=== PATIENT | male | born 1970 | race Caucasian/White ===

== ENCOUNTER → 2020-03-29 15:46 | Outpatient (CLI) | payer BC, SELFPAY ==
--- NOTE | 2020-03-29 15:55 | MRI_ITS ---
STUDY: MRI LEFT ELBOW REASON FOR EXAM: Male, 49 years old. Left elbow lateral epicondylitis, no injury TECHNIQUE: Standardized fat and water weighted pulse sequences were obtained in all 3 orthogonal planes. COMPARISON: None. FINDINGS: Normal radio-capitellum articulation. Normal radial collateral ligamentous complex. There is a mild thickening and irregularity as well as irregular signal of the common extensor tendon origin with a partial deep surface tear. A small elbow joint effusion is present. Marrow edema or occult fracture is seen. No osteochondral defect. Normal ulnotrochlear articulation. Normal ulnar collateral ligamentous complex. Normal common flexor tendon. The cubital tunnel is normal, with a normal ulnar nerve. Normal biceps tendon and distal insertion. Normal lacertus fibrosis. Normal brachialis musculotendinous insertion. Normal triceps tendon and teno-osseous insertion. Normal olecranon process. The visualized distal humerus, proximal radius, and ulna are normal. The visualized muscles of the distal arm and proximal forearm are normal. The soft tissue structures are unremarkable. MRI/Upper Ext Joint Only(Routine) IMPRESSION: 1. There is a mild thickening and irregularity as well as irregular signal of the common extensor tendon origin with a partial deep surface tear. 2. A small elbow joint effusion is present. 3. Marrow edema or occult fracture is seen. No osteochondral defect. Electronically Signed: Pedro Garcia MD at 21:59 EDT , Service support ,
== END ==
LOC: MRI 15:53
PROVIDERS: PCP Family Medicine; Referring Provider Physician Assistant; Visit Provider Physician Assistant
DX: M77.12 Lateral epicondylitis, left elbow (principal)
CPT/HCPCS: 73221

== ENCOUNTER → 2021-04-29 08:25 | Outpatient (CLI) | payer BC, SELFPAY ==
--- NOTE | 2021-04-29 08:49 | MRI_ITS ---
STUDY: MRI CERVICAL SPINE WITHOUT CONTRAST REASON FOR EXAM: Male, 50 years old. NECK AND RT ARM PAIN TECHNIQUE: Standardized fat and water weighted pulse sequences were obtained in the sagittal and axial planes. COMPARISON: None FINDINGS: Normal foramen magnum and brainstem-cervical cord junction. Normal craniovertebral junction. Normal anterior atlantoaxial articulation. Normal odontoid process. Normal cervical lordosis. Normal vertebral bodies and posterior osseous elements. C2-3: Normal endplates. Normal disc height, signal and morphology. Normal central canal and intervertebral neural foramina. C3-4: Edematous endplate changes. Disc space narrowing. Mild, noncompressive spondylotic bar. Normal central canal. Moderate foraminal stenosis due to uncinate hypertrophy. C4-5: Normal endplates. Normal disc height, signal and morphology. Normal central canal and intervertebral neural foramina. C5-6: Edematous endplate changes. Marked disc space narrowing. Normal central canal. Severe foraminal stenosis due to uncinate hypertrophy. C6-7: Normal endplates. Marked disc space narrowing. Mild, noncompressive spondylotic bar. No canal stenosis. Foraminal stenosis is mild on the right and severe on the left due to uncinate hypertrophy. C7-T1: Normal endplates. Normal disc height, signal and morphology. Normal central canal and intervertebral neural foramina. Normal cervical cord. Normal visualized soft tissue structures. Mucosal thickening in the sphenoid sinuses. Fluid level in the left maxillary sinus. MRI/Spine Cervical (Routine) IMPRESSION: 1. Moderate to severe foraminal stenosis at C3-4, C5-6 and C6-7. 2. Acute maxillary sinusitis. 3. Chronic sphenoid sinusitis. Electronically Signed: Velma Morelos MD at 18:26 EDT Tel , Service support ,
== END ==
PROVIDERS: PCP Nurse Practitioner Family; Referring Provider Anesthesiology Pain Medicine; Visit Provider Anesthesiology Pain Medicine
DX: M50.30 Other cervical disc degeneration, unspecified cervical region (principal); M67.812 Other specified disorders of synovium, left shoulder
CPT/HCPCS: 72141

== ENCOUNTER → 2021-05-31 12:46 | Outpatient (CLI) | payer BC, SELFPAY ==
[2021-05-31 13:35] LABS: Amphetamine Urine VISTA NEGATIVE (<1000 ng/mL); Barbiturate Urine VISTA NEGATIVE (< 200 ng/mL); Benzodiazepine Urine VISTA NEGATIVE (< 200 ng/mL); Cocaine Urine VISTA NEGATIVE (< 300 ng/mL); Ecstacy Urine VISTA NEGATIVE (< 500 ng/mL); Methadone Urine VISTA NEGATIVE (< 300 ng/mL); PCP Urine VISTA NEGATIVE (< 25 ng/mL); THC Urine VISTA POSITIVE (< 50 ng/mL); Vista UDS pH Range 5
== END ==
LOC: LABSPEC 12:49 → LAB 06-01 06:29
PROVIDERS: PCP Nurse Practitioner Family; Visit Provider Anesthesiology Pain Medicine
DX: F11.20 Opioid dependence, uncomplicated (principal)
CPT/HCPCS: 80307

== ENCOUNTER 2022-01-11 05:45 | Inpatient (IN) | payer BC, SELFPAY ==
[2022-01-11] VITALS (11 sets, daily range): BP systolic 113–132; BP diastolic 70–92; PULSE 83–104; RESP 16–20; TEMP 36.6–37.2; O2SAT 93–97; BMI 23.1
[2022-01-11] MEDS: Lactated Ringers 1,000 ML 15 ML IV ×2 (06:33→11:50)
--- NOTE | 2022-01-11 07:27 | PCM.OPRPT ---
Problems Associated Problem List Diagnoses (1) Lumbar stenosis: Report of Operation Date of Procedure: 01/11/22 Pre-Operative Diagnosis: 1. Lumbar stenosis, L4-5 with spondylosis 2. Lumbar degenerative disc disease L4-5 Post-Operative Diagnosis: 1. Lumbar stenosis, L4-5 with spondylosis 2. Lumbar degenerative disc disease L4-5 Surgery/Procedure Performed:: 1. L4-5 posterior lumbar interbody fusion 2. Insertion of intervertebral biomechanical device x1 3. Structural allograft for spinal fusion 4. L4 bilateral laminectomies, foraminotomies, facetectomies, decompression of bilateral nerve roots 5. L4-5 posterior lateral fusion 6. Pedicle screw fixation 7. Local autograft for spinal fusion 8. Neuro monitoring bilateral upper and bilateral lower extremities Description of Surgical Findings:: Statement of medical necessity: The patient is a 51-year-old male with intractable back and leg pain. Image studies confirm the above diagnosis. He has failed conservative treatment to include medication, physical therapy and injections. The patient opted for operative intervention understanding the risks to include but not limited to infection, bleeding, damage to nerves arteries and veins, possibility of spinal fluid leak, nonunion, hardware failure, continued pain, need for further surgery, deep vein thrombosis, pulmonary embolism, heart attack, risk of stroke or . Description of procedure: The patient was identified in the preoperative holding area. There he received preoperative IV antibiotics, Ancef, and was then transferred to the operative suite. Once in the operative suite after general endotracheal anesthesia was established, the patient was transferred to the [place] operating table in the prone position. All bony prominences were padded accordingly. The lumbar spine was prepped and draped in a standard surgical fashion. Bear hugger's were not turned on until the drapes were placed and sealed with Ioban. A midline incision was made and taken down to the level of the lumbodorsal fascia. The fascia was divided and subperiosteal dissection was taken down to the level of the bilateral transverse processes of L4 and L5. Deep retractors were placed. A bone scalpel was used to perform cuts in the lamina of L4 bilaterally. A series of rongeurs and Kerrisons was used removing the spinous process and lamina at L4. Then facetectomies of greater than 50% were performed as well as foraminotomies, decompressing the bilateral nerve roots. Given the severity of the stenosis, I needed to perform wide bilateral laminectomies and near complete facetectomies in order to decompress the neural elements, therefore creating instability necessitating the fusion. The nerve root and dura were retracted medially and a 15 blade scalpel was used to make an annulotomy at L4-5 on the left side. Endplate elevator, curettes, and pituitaries were utilized to remove disc material. Endplates were prepared with a rasp. An appropriate sized intervertebral peek cage measuring 11 mm was packed with morselized cancellous allograft and then impacted into position completing the posterior lumbar interbody fusion at the L4-5 level. I then proceeded with pedicle screw fixation. Starting points were found at the junction of the superior articular process and transverse process of L4 and L5. A power bur was used for the starting points. Pedicle probes were placed bilaterally and then 6.5 x 45 mm screws were placed bilaterally at L4 and 6.5 x 45 mm screws were placed bilaterally at L5. The screws were tested with intraoperative neurophysiologic monitoring and they tested within normal limits. Connecting rods and extensors were then applied. I then proceeded with the posterior lateral fusion. This was accomplished by decorticating the transverse processes bilaterally at L4 and L5. This decorticated bone was then bridged with local autograft from the decompression as well as morselized cancellous allograft, completing the posterior lateral fusion at L4-5. The incision was then thoroughly irrigated. Tisseel was placed over the dura as a hemostatic agent. A deep drain was placed. The fascia was closed with #1 Vicryl, subcutaneous with 2-0 Vicryl, and skin with 2-0 nylon. A sterile dressing was applied with 4 x 4's ABD and tape. Sponge instrument needle counts were correct at the end of the case. Neurophysiologic monitoring was maintained at baseline throughout the duration of the case. The patient was extubated and taken to the PACU without incident. Juli Mcknight PA-C was present during the entire duration of the case and critical for parts of the case including retraction and closure. Surgeon: Mckinley Rodriguez donor services manager: Juli Mcknight Type of Anesthesia: General Drains: Hemovac Estimated Blood Loss (mL): 100 cc Fluids Replaced: 1800 cc Grafts/Implants Used: Unified spine,Talos, Vitae OS, DBM Complications None Admit VTE Documentation VTE Present on Admission: No
--- NOTE | 2022-01-11 07:27 | PCM.PN.ORT ---
Subjective Subjective The patient was seen and examined postoperatively in the PACU. He is resting comfortably. His pain is controlled. He denies any other complaints including numbness tingling weakness. Objective Data Objective Data Vital Signs: Vital Signs Temp Pulse Resp BP Pulse Ox 98.7 F 83 16 124/80 H 94 01/11/22 06:25 01/11/22 06:25 01/11/22 06:25 01/11/22 06:25 01/11/22 06:25 Oxygen Delivery Method Room Air Weight: 160 lb 14.999 oz Body Mass Index (BMI) 23.1 Lab / Micro Data Micro: Microbiology 01/11/22 06:10 Interface Orders SARS-CoV-2 Antigen (Rapid) - Final Physical Exam Const alert, oriented x3 and no apparent distress General Appearance: cooperative and comfortable HEENT normocephalic and head/scalp atraumatic Eyes EOMs intact bilaterally and conjunctivae normal Neck full ROM General: normal visual inspection Chest inspection of chest normal and palpation of chest normal Resp normal respiratory effort and normal air movement Cardio regular rate, regular rhythm and peripheral pulses 2+ throughout Peripheral Pulses: pulses 2+ throughout GI soft to palpation, non-tender and non-distended Back/Spine Back/Spine Narrative: Dressing clean dry and intact, drain in place and functioning with small amount of serosanguineous fluid present Cervical Spine: cervical ROM normal Thoracic Spine / Upper Back: normal to inspection Lumbar Spine / Lower Back: normal to inspection Extremity normal to inspection, full ROM, normal capillary refill, no clubbing, cyanosis or edema and no calf tenderness Peripheral Pulses: Yes pulses 2+ throughout Skin no rashes or lesions noted General Skin Exam: no breakdown Neuro oriented x3, CN's II-XII intact bilaterally, moves all extremities, no focal motor deficits, no sensory deficits noted and deep tendon reflexes 2+ bilaterally Motor Exam: strength 5/5 throughout and muscle tone normal throughout Assessment & Plan Assessment/Plan (1) Lumbar stenosis: PLAN: Okay to admit to floor See orders Pain control and mobilization as tolerated, back brace on at all times while out of bed Continue antibiotics while drain in place
--- NOTE | 2022-01-11 07:27 | PCM.DC.SUM ---
Providers Date of Admission: 01/11/22 Primary Care Physician: Estela Angela [employer] Reason For Visit: POST LUM INTERBODY FUSION L4-5 Diagnosis Discharge Diagnosis (1) Lumbar stenosis: Status: Acute Code(s): M48.061 - Spinal stenosis, lumbar region without neurogenic claudication Medications at Discharge Home Medications gabapentin 300 mg PO BID 12/28/21 losartan 100 mg PO DAILY 12/28/21 amlodipine [Norvasc] 10 mg PO DAILY 01/11/22 cyclobenzaprine [Flexeril] 10 mg PO BID 01/11/22 hydrocodone-acetaminophen 1 tab PO Q6H PRN 7 Days #28 tab 01/11/22 Hospital Course Operations - (L4-5 posterior lumbar interbody fusion, decompression, posterior spinal fusion with instrumentation, use of allograft) Summary of Care Provided Minutes Spent on Discharge: 15 Hospital Course: The patient is a 51-year-old male who underwent L4-5 posterior lumbar interbody fusion, decompression, posterior spinal fusion with instrumentation, use of allograft on 01/11/2022. He was subsequently admitted. The hospitalist was consulted for medical management. The patient progressed well. His pain was controlled and he was mobilizing well. His drain was pulled on postoperative day 1. No significant medical issues were reported. He was subsequently discharged home on 01/12/22 to follow-up with Dr. Rodriguez in 3 weeks. Physical Exam Const alert, oriented x3 and no apparent distress General Appearance: cooperative and comfortable HEENT normocephalic and head/scalp atraumatic Eyes EOMs intact bilaterally and conjunctivae normal Neck full ROM General: normal visual inspection Chest inspection of chest normal and palpation of chest normal Resp normal respiratory effort and normal air movement Cardio regular rate, regular rhythm and peripheral pulses 2+ throughout Peripheral Pulses: pulses 2+ throughout GI soft to palpation, non-tender and non-distended Back/Spine Back/Spine Narrative: Dressing clean dry and intact. Incision well approximated with interrupted sutures in place. No erythema tenderness drainage or fluctuance. Cervical Spine: cervical ROM normal Thoracic Spine / Upper Back: normal to inspection Lumbar Spine / Lower Back: normal to inspection Extremity normal to inspection, full ROM, normal capillary refill, no clubbing, cyanosis or edema and no calf tenderness Peripheral Pulses: Yes pulses 2+ throughout Skin no rashes or lesions noted General Skin Exam: no breakdown Neuro oriented x3, CN's II-XII intact bilaterally, moves all extremities, no focal motor deficits, no sensory deficits noted and deep tendon reflexes 2+ bilaterally Motor Exam: strength 5/5 throughout and muscle tone normal throughout Weight / BMI Weight Weight: 160 lb 14.999 oz Body Mass Index (BMI) 23.1 ABG / Lab / Microbiology Data Microbiology: Microbiology 01/11/22 06:10 Interface Orders SARS-CoV-2 Antigen (Rapid) - Final D/C Instructions Discharge Diet: No restrictions Discharge Activity: - (Wear back brace at all times while out of bed. No bending twisting or lifting greater than 5 pounds) Weight Bearing Status: Weight bearing as tolerated Lifting Restrictions: 5 pounds Additional Activity Instructions: Wear back brace at all times, no bending or twisting or lifting greater than 5 pounds Call your doctor if your incision/area has: Continuous Slow Oozing, Sudden Increased Bleeding, Increased Pain/ Swelling, Increased Redness, Foul Smelling Discharge and Swelling at the incision site Call your doctor if you observe: Fever of 101 or Higher, Coldness, Increased Pain, Numbness or Tingling, Change in Color, Inability to urinate, Inability to have a bowel movement, Using more than 1 pad per hour, Shortness of breath, Dizziness, Fainting spells, Swelling in the ankles, Chest pain, Prolonged hiccupping, Increased palpitations (irregular heartbeat), Calf discomfort and Uncontrolled pain Change Dressing in: Daily Remove Dressing in: Daily Cleanse incision/area with: Do not get Incision Wet and Keep Dressing Clean & Dry Additional Dressing/Incision Instructions: Daily dressing changes with gauze and tape, iodine to incision Please Follow Up With: Mckinley Rodriguez DO When: 3 weeks Meaningful Use Info Meaningful Use Diagnoses (Choose all that apply): None applicable Discharge Plan Admission Admit Date/Time: 01/11/22 05:45 Attending Provider: Mckinley Rodriguez Primary Care Provider: Estela Angela NP Consulting Providers: Damian Ware Additional Instructions / Restrictions: 1. During your procedure, you received sedation through your IV. Please follow these instructions for the next 24 hours: Do not drive a motor vehicle, do not drink any alcoholic beverages, and do not sign any legal documents or make personal or business decisions. A responsible adult should stay with you at least 6 hours after the procedure. 2. Keep your surgical site/incision clean and the dressing dry and intact. You may use an ice pack at the surgical site to reduce any swelling or discomfort. 3. Monitor the incision site for any signs or symptoms of infection. Watch for redness, excessive swelling or drainage, or continued pain at the incision site after 3 days. Contact your physician immediately for a fever, chills or a temperature of 101.5? F or greater. 4. Take your medication exactly as prescribed by your physician. Do not attempt to wean yourself off any of your medications even though your pain is improving. This process needs to be carefully monitored by your doctor. Take any antibiotics prescribed exactly as directed and until they are gone. 5. Avoid stretching, bending, pulling, twisting or any sudden movements. Do not bend or twist at the waist. 6. No lifting greater than 5 pounds. 7. Do not operate a motor vehicle, equipment or a power tool while taking pain medication 8. Do not have any manipulation done by a chiropractor or any other physician without first consulting with the surgeon 9. Please contact our office if you are even scheduled for a CT scan or an MRI. 10. Please call us if you have any questions, problems or concerns Follow-up with Dr. Rodriguez in 3 weeks. Discharge Orders/Prescriptions Prescriptions: New hydrocodone-acetaminophen 5-325 mg tablet 1 tab PO Q6H PRN (Reason: pain) 7 Days Qty: 28 RF: 0 Continued losartan 100 mg Tablet 100 mg PO DAILY RF: 0 gabapentin 100 mg Tablet 300 mg PO BID RF: 0 amlodipine [Norvasc] 10 mg Tablet 10 mg PO DAILY RF: 0 No Action cyclobenzaprine [Flexeril] 10 mg Tablet 10 mg PO BID RF: 0 Referrals / Follow Up: Mckinley Rodriguez DO [STAFF PHYSICIAN] - Estela Angela NP, [employer] [Primary Care Provider] - Disposition Disposition (needs filled in before D/C Order can be placed): Home, Self Care
[2022-01-11] MEDS: Lactated Ringers 1,000 ML 100 ML IV ×2 (07:30→16:18)
--- NOTE | 2022-01-11 07:30 | RAD_ITS ---
PROCEDURE: Imaging for L4-L5 laminectomy and fusion and prosthetic disc placement. DATE OF EXAMINATION: 01/11/2022 INDICATION: Male, 51 years old. Chronic low back pain. FLUOROSCOPY TIME (if supplied): (1 minute and 39 seconds) minutes/seconds. 5 images were obtained. RAD/Lumbar Spine 2 or 3 Views IMPRESSION: Intraoperative images are provided for laminectomy and fusion at the L4-L5 level with prosthetic disc placement. Electronically Signed: Serg Betancur MD at 13:32 EDT ,
[2022-01-11] MEDS: Cefazolin 1 GM/50 ML BAG IV ×2 (08:05→16:38)
[2022-01-11] MEDS: Heparin 10,000 UNITS/10 ML Vial 10000 UNITS (08:24)
[2022-01-11] MEDS: THROMBIN (RECOMBINANT) 20,000 UNIT VIAL 20000 UNIT TOPICAL (08:30)
[2022-01-11] MEDS: Bupivacaine 0.25% 30 ML Vial (11:16)
[2022-01-11] MEDS: Morphine 4 MG/ML Syringe IV ×3 (15:06→22:00)
[2022-01-11] MEDS: Acetaminophen 500 MG Tablet 1000 MG PO ×2 (15:06→22:03)
[2022-01-11] MEDS: oxyCODONE 5 MG Tablet PO ×2 (15:51→20:35)
[2022-01-11] MEDS: cycloBENZAPRine HCl 10 MG Tablet PO (18:25)
--- NOTE | 2022-01-11 19:25 | PN.HOSP_ITS ---
Subjective Subjective Patient was seen and examined today at request of orthopedic surgery, patient underwent lumbar spine surgery with an L4-L5 posterior lumbar interbody fusion and insertion of a biomechanical device along with a structural allograft for spinal fusion. 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 At the time my examination, patient denies any shortness of breath, chest pain, fever, or chills. Objective Data Objective Data Vital Signs: Vital Signs Temp Pulse Resp BP Pulse Ox 98.0 F 100 18 117/80 93 01/11/22 18:28 01/11/22 18:28 01/11/22 18:28 01/11/22 18:28 01/11/22 18:28 Oxygen Delivery Method Room Air Weight: 73 kg Body Mass Index (BMI) 23.1 Intake & Output: Intake and Output for Last 24 Hours 01/09/22 01/10/22 01/11/22 23:59 23:59 23:59 Intake Total / Output Total 2375 / 2375 Balance -361.67 / -361.67 Lab / Micro Data Micro: Microbiology 01/11/22 06:10 Interface Orders SARS-CoV-2 Antigen (Rapid) - Final Radiography Diagnostic Testing: Radiology Impression Lumbar Spine X-Ray 01/11/22 07:30 IMPRESSION: Intraoperative images are provided for laminectomy and fusion at the L4-L5 level with prosthetic disc placement. Electronically Signed: Serg Betancur MD at 13:32 EDT , Physical Exam Const alert, oriented x3, no apparent distress and healthy appearing General Appearance: cooperative, well kempt and well developed Orientation / Consciousness: awake, oriented to person, oriented to place and oriented to time HEENT normocephalic, head/scalp atraumatic and moist oral mucous membranes Head and Scalp: normocephalic Eyes PERRL, EOMs intact bilaterally and conjunctivae normal Neck nuchal rigidity, supple, no JVD, thyroid normal and no carotid bruits General: trachea midline Resp normal respiratory effort, no retractions, no use of accessory muscles and clear to auscultation bilaterally Auscultation: Negative for rales, rhonchi or wheezes Cardio regular rate, regular rhythm, S1 normal heart sound, S2 normal heart sound, no murmurs, no rub and no gallops GI normal to inspection, nondistended, normoactive bowel sounds, soft to palpation, non-tender and non-distended Extremity no clubbing, cyanosis or edema Skin skin turgor normal General Skin Exam: no breakdown Neuro oriented x3, CN's II-XII intact bilaterally, no focal motor deficits and no s ensory deficits noted Sensorium / Orientation: awake and alert Speech: speech normal Psych affect normal Assessment & Plan Assessment/Plan (1) Lumbar stenosis: PLAN: 1. Essential hypertension-patient will remain on his home medications at this time, blood pressure will be monitored, patient was placed on a nicotine patch due to his smoking history. #2 radiculopathy secondary to lumbar stenosis and degenerative joint disease of the lumbar spine-patient remains on gabapentin #3 lumbar stenosis L4-L5 with spondylosis-status post lumbar spine surgery postop day 0-patient will be seen by PT and OT, orthopedic surgery is participating in his care Charges/Coding Visit Charges Inpatient E&M: 53300 Subs Hosp L2
[2022-01-11] MEDS: Gabapentin 300 MG Capsule PO (22:03)
[2022-01-12] MEDS: Cefazolin 1 GM/50 ML BAG IV (00:13)
[2022-01-12 00:14] VITALS: BP 111/81; PULSE 94; RESP 16; TEMP 36.4; O2SAT 97
[2022-01-12] MEDS: oxyCODONE 5 MG Tablet PO ×3 (02:52→12:26)
[2022-01-12] MEDS: Lactated Ringers 1,000 ML 100 ML IV (02:53)
[2022-01-12 06:00] VITALS: BP 128/92; PULSE 79; PULSE 81; RESP 18; TEMP 36.4; O2SAT 98
[2022-01-12] MEDS: cycloBENZAPRine HCl 10 MG Tablet PO (06:18)
[2022-01-12] MEDS: Acetaminophen 500 MG Tablet 1000 MG PO ×2 (06:19→15:33)
[2022-01-12 06:58] VITALS: PULSE 75
[2022-01-12] MEDS: amLODIPine 10 MG Tablet PO (08:06)
[2022-01-12] MEDS: Losartan Potassium 100 MG Tablet PO (08:06)
[2022-01-12] MEDS: Gabapentin 300 MG Capsule PO (08:06)
[2022-01-12 09:00] VITALS: BP 124/90; PULSE 71; RESP 14; TEMP 36.9; O2SAT 100
--- NOTE | 2022-01-12 09:16 | PCM.PN.ORT ---
Subjective Subjective the patient was seen and examined. lying in bed resting comfortably. having some post op soreness. no numbness, tingling or weakness. he has not yet been out of bed. bazan removed. no other complaints Objective Data Objective Data Vital Signs: Vital Signs Temp Pulse Resp BP Pulse Ox 98.4 F 71 14 124/90 H 100 01/12/22 09:00 01/12/22 09:00 01/12/22 09:00 01/12/22 09:00 01/12/22 09:00 Oxygen Delivery Method Room Air Weight: 160 lb 14.999 oz Body Mass Index (BMI) 23.1 Intake & Output: Intake and Output for Last 24 Hours 01/10/22 01/11/22 01/12/22 23:59 23:59 23:59 Intake Total 33 / 1950.92 / 1950.92 Output Total 2375 / 3575 1600 / 1600 Balance -361.67 / -1561.67 350.92 / 350.92 Lab / Micro Data Micro: Microbiology 01/11/22 06:10 Interface Orders SARS-CoV-2 Antigen (Rapid) - Final Radiography Diagnostic Testing: Radiology Impression Lumbar Spine X-Ray 01/11/22 07:30 IMPRESSION: Intraoperative images are provided for laminectomy and fusion at the L4-L5 level with prosthetic disc placement. Electronically Signed: Serg Betancur MD at 13:32 EDT , Physical Exam Const alert, oriented x3 and no apparent distress General Appearance: cooperative, comfortable and well kempt HEENT normocephalic and head/scalp atraumatic Neck full ROM Chest inspection of chest normal Resp normal respiratory effort and normal air movement Auscultation: bronchovesicular breath sounds Cardio regular rate, regular rhythm and peripheral pulses 2+ throughout GI soft to palpation, non-tender and non-distended Back/Spine Back/Spine Narrative: dressing CDI. drain in place and functioning, small amount of SS fluid. incision well approximated, no erythema, tenderness, drainage or fluctuance. Cervical Spine: cervical ROM normal Thoracic Spine / Upper Back: normal to inspection Lumbar Spine / Lower Back: normal to inspection Extremity normal to inspection, full ROM, normal capillary refill, no clubbing, cyanosis or edema and no calf tenderness Peripheral Pulses: Yes pulses 2+ throughout Skin no rashes or lesions noted General Skin Exam: no breakdown Neuro oriented x3, CN's II-XII intact bilaterally, moves all extremities, no focal motor deficits, no sensory deficits noted and deep tendon reflexes 2+ bilaterally Motor Exam: strength 5/5 throughout and muscle tone normal throughout Assessment & Plan Assessment/Plan (1) Lumbar stenosis: PLAN: continue pain control and mobilization back brace when out of bed decadron 4mg IV Q6h PRN pain drain pulled this AM DC planning, likely home today
--- NOTE | 2022-01-12 10:49 | PN.HOSP_ITS ---
Subjective Subjective Patient was seen and examined today, he voices no complaints at this examiner of any shortness of breath or chest discomfort, I talked briefly with orthopedic surgery about his care today. Patient's blood pressure is slightly elevated today but I do not feel he needs his blood pressure medications adjusted. I thi nk he could continue to take his blood pressure medications as previously prescribed when he goes home. Objective Data Objective Data Vital Signs: Vital Signs Temp Pulse Resp BP Pulse Ox 98.4 F 71 14 124/90 H 100 01/12/22 09:00 01/12/22 09:00 01/12/22 09:00 01/12/22 09:00 01/12/22 09:00 Oxygen Delivery Method Room Air Weight: 73 kg Body Mass Index (BMI) 23.1 Intake & Output: Intake and Output for Last 24 Hours 01/10/22 01/11/22 01/12/22 23:59 23:59 23:59 Intake Total 2012.33 / 2013.33 1950.92 / 1950.92 Output Total 2375 / 3575 1600 / 1600 Balance -361.67 / -1561.67 350.92 / 350.92 Lab / Micro Data Micro: Microbiology 01/11/22 06:10 Interface Orders SARS-CoV-2 Antigen (Rapid) - Final Radiography Diagnostic Testing: Radiology Impression Lumbar Spine X-Ray 01/11/22 07:30 IMPRESSION: Intraoperative images are provided for laminectomy and fusion at the L4-L5 level with prosthetic disc placement. Electronically Signed: Serg Betancur MD at 13:32 EDT , Physical Exam Const alert, oriented x3, no apparent distress and healthy appearing General Appearance: cooperative, well kempt and well developed Orientation / Consciousness: awake, oriented to person, oriented to place and oriented to time HEENT normocephalic and moist oral mucous membranes Eyes PERRL, EOMs intact bilaterally and conjunctivae normal Neck nuchal rigidity, supple, no JVD and thyroid normal General: trachea midline Resp normal respiratory effort and clear to auscultation bilaterally Auscultation: Negative for rales, rhonchi or wheezes Cardio regular rate, regular rhythm, S1 normal heart sound, S2 normal heart sound, no murmurs, no rub and no gallops GI normal to inspection, nondistended, normoactive bowel sounds, soft to palpation, non-tender and non-distended Extremity no clubbing, cyanosis or edema Skin no rashes or lesions noted General Skin Exam: no breakdown Neuro oriented x3, CN's II-XII intact bilaterally, no focal motor deficits and no sensory deficits noted Sensorium / Orientation: awake and alert Speech: speech normal Psych affect normal Assessment & Plan Assessment/Plan (1) Lumbar stenosis: PLAN: 1. Essential hypertension-patient will remain on his home medications at this time, blood pressure will be monitored, patient appears medically stable for discharge at this time #2 radiculopathy secondary to lumbar stenosis and degenerative joint disease of the lumbar spine-patient remains on gabapentin #3 lumbar stenosis L4-L5 with spondylosis-status post lumbar spine surgery postop day 1-patient is seen by PT and OT, orthopedic surgery is participating in his care Charges/Coding Visit Charges Inpatient E&M: 37697 Subs Hosp L2
--- NOTE | 2022-01-12 11:17 | CASEMGMT ---
Addendum entered by Xenia العراقي 01/12/22 16:25: Pt standing at door ready to leave, [facility] now is closed for FWW. Pt and states they will pick it up. TC to [facility], they are open until 5pm. Also notified pt he can obtain at [facility]. TC to office, was told they will fax from hard fax at this time. Addendum entered by Xenia العراقي 01/12/22 16:24: TC again to office to request script. Gave another fax number to floor. Addendum entered by Xenia العراقي 01/12/22 15:27: TC back to Dr. Rodriguez office, spoke with Luiza, she states the rx was signed and will fax at this time. Addendum entered by Xenia العراقي 01/12/22 12:51: TC to office as rx for FWW not received. Refaxed per request at this time. Original Note: TIGRE LOPEZ Assessment: Face to Face with pt for initial transition planning/care coordination assessment. TIGRE LOPEZ introduced self and role at [facility], pt voices understanding and consents to assessment. Pt is A/O x4 and answers all questions appropriately at this time. Pt sitting up in chair with at bedside. Care providers, pharmacy, and demographics verified/updated. Admitting Dx: post lumbar interbody fusion L4-5 PCP:Estela Angela NP Specialists:Jennifer, spine [place] Preferred Pharmacy: [facility] Retail Insurance: [place] Prescription Benefit: yes LW/HPOA: Pt denies having a LW/DPOA and denies need for info regarding AD. LNOK: Teresa Garcia Living Arrangements: Pt lives in a two story house in the basement with no steps to enter in basement. Pt reports he is I in ADL's and denies concerns at home. Transportation: Pt drives self and denies concerns with transportation. will transport until pt able to drive. DME/HHC/SNF: Pt has a BSC at home. Pt is requesting a FWW. Pt states he has had HHC in the past and denies SNF stays. Provided pt with a local in network list of DME companies, pt chooses [facility]. [facility] for signature for rx. Pt also requests meds be delivered to his room. TC to [facility] Retail pharmacy to make aware. Pt states no concerns with going home at time of dc. Pt states no further concerns/needs. CM to follow. Advised pt to ask CM if any further question/concerns/needs arise, voices understanding. Pt Goal: Home Plan: Home
[2022-01-12] MEDS: dexAMETHasone 4 MG/ML Vial IV (11:47)
[2022-01-12 15:00] VITALS: BP 126/86; PULSE 74; RESP 15; TEMP 36.9; O2SAT 99
[2022-01-12 16:29] VITALS: BP 128/64; PULSE 80; RESP 18; TEMP 36.8; O2SAT 98
== END 2022-01-12 16:34 | disposition home or self-care (01) | DRG 460 ==
LOC: ACINP 09:02 → MS3 14:54
PROVIDERS: Admitting Provider Orthopaedic Surgery; PCP Nurse Practitioner Family; Referring Provider Orthopaedic Surgery; Visit Provider Orthopaedic Surgery
PROC: 0SG00AJ Fusion of Lumbar Vertebral Joint with Interbody Fusion Device, Posterior Approach, Anterior Column, Open Approach (ICD-10-PCS; CPT 22630; principal; 2022-01-11 07:00)
DX: M51.16 Intervertebral disc disorders with radiculopathy, lumbar region (principal); F17.210 Nicotine dependence, cigarettes, uncomplicated; M47.26 Other spondylosis with radiculopathy, lumbar region; G62.9 Polyneuropathy, unspecified; I10 Essential (primary) hypertension; M48.061 Spinal stenosis, lumbar region without neurogenic claudication; Z79.899 Other long term (current) drug therapy
CPT/HCPCS: 72100; 76000; 87426; 97161; 99251; C1713; J7120; G0463; J2405

== ENCOUNTER → 2022-03-12 | Outpatient (CLI) | payer BC, SELFPAY ==
[2022-03-12 12:35] LABS: Absolute Lymphocyte Count 4.53 X10^3/uL (0.83-4.51); Absolute Neutrophil Count 2.9 X10^3/uL (2.0-7.7); Basophil# 0.08 X10^3/uL; Basophil% 0.9 % (0-1); Eosinophil# 0.59 X10^3/uL; Eosinophils% 6.6 % (0-5); Hemoglobin 14.4 g/dL (13.0-16.5); Lymphocyte # 4.53 X10^3/ul (0.83-4.51); Lymphocyte % 50.4 % (19-41); Mean Corp Hgb Conc 33.5 g/dL (32-36); Mean Corpuscular Hgb 33.3 pg (27.0-32.0); Mean Corpuscular Volume 99.3 fL (80-94); Mean Platelet Vol. 9.5 fl (6.2-12.0); Monocyte# 0.87 X10^3/uL; Monocyte% 9.7 % (0-10); NRBC Flagged by Analyzer 0 % (0-5); Neutrophil % 32.2 % (47-70); POSITIVE MORPHOLOGY YES; Platelet Count 353 K/mm3 (150-450); RBC Distribution Width CV 12.7 % (11.6-14.6); RBC Distribution Width SD 46.6 fl (35.1-43.9); Red Blood Count 4.33 M/mm3 (4.6-6.2)
[2022-03-12 12:40] LABS: Differential Indicated SCAN CRITERIA MET
[2022-03-12 12:48] LABS: Vitamin B12 372 pg/mL (211-911)
[2022-03-12 13:05] LABS: ALB/GLOB Ratio 1.1 RATIO (0.9-2.4); AST(SGOT) 33 U/L (15-37); Alanine Aminotransfer ALT/SGPT 28 U/L (16-61); Albumin, Serum 3.6 g/dL (3.2-5.0); Alkaline Phosphatase 93 U/L (45-117); Anion Gap 7 (5-15); BUN 11 mg/dL (7-18); BUN/Creat Ratio 19.3 RATIO (10-20); Calcium,Total 8.5 mg/dL (8.5-10.1); Chloride 106 mmol/L (98-107); Cholesterol 172 mg/dL (200); Creatinine, Serum 0.57 mg/dL (0.70-1.30); EST Glomerular Filtration Rate 161 mL/min (>60); Est Glom Filt Rate - Afr Amer 194 mL/min (>60); Globulin 3.4 g/dL (2.2-4.2); Glucose 83 mg/dL (74-106); High Density Lipoprotein 50 mg/dL; Rheumatoid Factor < 10.0 IU/mL (<15); Sodium Level 138 mmol/L (136-145); Thyroid Stim Hormone (TSH) 1.69 uIU/mL (0.358-3.74); Triglycerides 367 mg/dL; Very Low Density Lipoprotein 73 mg/dL (5-40)
[2022-03-12 13:26] LABS: Differential Comment SCANNED; Reactive Lymphocyte 1+
[2022-03-12 14:53] LABS: Erythrocyte Sedimentation Rate 2 mm/hr (0-20)
[2022-03-13 14:34] LABS: ANTINUCLEAR ANTIBODIES DIRECT Negative (Negative)
== END | disposition home or self-care (01) ==
PROVIDERS: PCP Nurse Practitioner Family; Visit Provider Family Medicine
DX: M25.50 Pain in unspecified joint (principal); I10 Essential (primary) hypertension
CPT/HCPCS: 36415; 80053; 80061; 82607; 82746; 84425; 84443; 85025; 85652; 86038; 86431

== ENCOUNTER → 2022-05-03 | Outpatient (CLI) | payer BC, SELFPAY ==
--- NOTE | 2022-05-03 15:21 | RAD_ITS ---
STUDY: X-RAY - RIGHT KNEE REASON FOR EXAM: Male, 51 years old. KNEE PAIN TECHNIQUE: 3 view(s) of the knee. COMPARISON: None. FINDINGS: Normal visualized distal femur. Normal visualized proximal tibia and fibula. Normal proximal tibiofibular articulation. Fabella. There is no demonstrated fracture. Normal medial femorotibial compartment. Normal lateral femorotibial compartment. Normal patellofemoral articulation. There is no demonstrated joint effusion. The soft tissue structures are unremarkable. RAD/Knee 3 Views IMPRESSION: No finding to explain right knee pain. Electronically Signed: Kolby Cruz MD at 5:46 EDT ,
--- NOTE | 2022-05-03 15:21 | RAD_ITS ---
STUDY: X-RAY - LEFT KNEE REASON FOR EXAM: Male, 51 years old. KNEE PAIN TECHNIQUE: 3 view(s) of the knee. COMPARISON: None. FINDINGS: Normal visualized distal femur. Normal visualized proximal tibia and fibula. Normal proximal tibiofibular articulation. Fabella. There is no demonstrated fracture. Normal medial femorotibial compartment. Normal lateral femorotibial compartment. Normal patellofemoral articulation. There is no demonstrated joint effusion. The soft tissue structures are unremarkable. RAD/Knee 3 Views IMPRESSION: No finding to explain knee pain. Electronically Signed: Kolby Cruz MD at 5:45 EDT ,
--- NOTE | 2022-05-03 15:21 | RAD_ITS ---
STUDY: X-RAY - CERVICAL SPINE REASON FOR EXAM: Male, 51 years old. NECK PAIN TECHNIQUE: 5 view(s) of the cervical spine were obtained. COMPARISON: None FINDINGS: Normal anterior atlantoaxial articulation. Normal odontoid process. There is straightening of the normal cervical lordosis. Mid to lower cervical spine endplate disease and disc space loss. Normal visualized intervertebral neuroforamina. The soft tissue structures are unremarkable. RAD/Cerv Spine 4 or 5 Views IMPRESSION: Mid to lower cervical spine degenerative change without finding of bony spinal canal or neural foraminal stenosis. Electronically Signed: Kolby Cruz MD at 3:38 EDT ,
--- NOTE | 2022-05-03 15:22 | RAD_ITS ---
STUDY: X-RAY - PELVIS AND BILATERAL HIPS REASON FOR EXAM: Male, 51 years old. HIP PAIN TECHNIQUE: AP view of the pelvis.? 2 views of the right hip, and 2 views of the left hip were obtained. COMPARISON: None. FINDINGS: There is a non-specific bowel gas pattern. Normal visualized soft tissue structures. L4-L5 instrumented fusion noted. Normal bilateral iliac wings, sacroiliac joints and visualized sacrum. Normal bilateral superior and inferior pubic rami. Normal pubic symphysis. Normal bilateral ischial tuberosities. Normal visualized right femoral head. Normal right acetabulum. Normal right hip joint. Normal visualized left femoral head. Normal left acetabulum. Normal left hip joint. RAD/Hips B/L min 2 views w/ Pelvis IMPRESSION: Normal x-ray examination of the pelvis and bilateral hips. Electronically Signed: Kolby Cruz MD at 5:37 EDT ,
== END | disposition home or self-care (01) ==
PROVIDERS: PCP Family Medicine; Referring Provider Family Medicine; Visit Provider Family Medicine
DX: M25.561 Pain in right knee (principal); M25.562 Pain in left knee; M25.551 Pain in right hip; M25.552 Pain in left hip
CPT/HCPCS: 72050; 73521; 73562

== ENCOUNTER → 2022-10-16 | Outpatient (CLI) | payer BC, SELFPAY ==
[2022-10-16 10:38] LABS: Bacteria 0 SEEN /hpf (None Seen); Mucous, Urine 0 SEEN /hpf (<or=2+); Red Blood Cells-Urine 0 SEEN /hpf (0-5); Squamous Epithelial Cells - UA 0 SEEN /hpf (0-5); White Blood Cells 0 SEEN /hpf (0-5)
[2022-10-16 12:47] LABS: Color, Urine Yellow (Yellow); Glucose, Dipstick Normal (Normal); Ketone-Dipstick Negative (Negative); Leukocyte Esterase-Dipstick Negative /ul (Negative); Nitrite-Dipstick Negative (Negative); Occult Blood-Urine Negative /ul (Negative); Protein-Dipstick Negative (Negative); Urine Bilirubin Dipstick Negative (Negative); Urine Clarity Clear (Clear); Urine Urobilinogen Normal (Normal)
== END | disposition home or self-care (01) ==
LOC: LABSPEC 10:35
PROVIDERS: PCP Family Medicine; Visit Provider Family Medicine
DX: I10 Essential (primary) hypertension (principal)
CPT/HCPCS: 81001

== ENCOUNTER → 2023-06-18 | Outpatient (CLI) | payer BC, SELFPAY ==
[2023-06-18 12:07] LABS: Absolute Lymphocyte Count 4.18 X10^3/uL (0.83-4.51); Absolute Neutrophil Count 6.5 X10^3/uL (2.0-7.7); Basophil# 0.08 X10^3/uL; Basophil% 0.6 % (0-1); Eosinophil# 0.48 X10^3/uL; Eosinophils% 3.8 % (0-5); Hematocrit 47.2 % (40-54); Hemoglobin 15.2 g/dL (13.0-16.5); Lymphocyte # 4.18 X10^3/ul (0.83-4.51); Lymphocyte % 33.5 % (19-41); Mean Corp Hgb Conc 32.2 g/dL (32-36); Mean Corpuscular Hgb 32.1 pg (27.0-32.0); Mean Corpuscular Volume 99.6 fL (80-94); Mean Platelet Vol. 9.9 fl (6.2-12.0); Monocyte# 1.24 X10^3/uL; Monocyte% 9.9 % (0-10); NRBC Flagged by Analyzer 0 % (0-5); Neutrophil # 6.47 X10^3/uL (2.7-7.7); Platelet Count 306 K/mm3 (150-450); RBC Distribution Width CV 12.7 % (11.6-14.6); RBC Distribution Width SD 46.5 fl (35.1-43.9); Red Blood Count 4.74 M/mm3 (4.6-6.2); White Blood Count 12.5 K/mm3 (4.4-11.0)
[2023-06-18 12:54] LABS: ALB/GLOB Ratio 1.2 RATIO (0.9-2.4); AST(SGOT) 20 U/L (15-37); Alanine Aminotransfer ALT/SGPT 28 U/L (16-61); Albumin, Serum 3.7 g/dL (3.2-5.0); Alkaline Phosphatase 71 U/L (45-117); Anion Gap 5 (5-15); BUN 16 mg/dL (7-18); BUN/Creat Ratio 22.3 RATIO (10-20); Calcium,Total 8.8 mg/dL (8.5-10.1); Chloride 107 mmol/L (98-107); Cholesterol 152 mg/dL (200); Creatinine, Serum 0.72 mg/dL (0.70-1.30); EST Glomerular Filtration Rate 123 mL/min (>60); Est Glom Filt Rate - Afr Amer 148 mL/min (>60); Globulin 3.2 g/dL (2.2-4.2); Glucose 92 mg/dL (74-106); High Density Lipoprotein 64 mg/dL; Potassium 4.1 mmol/L (3.5-5.1); Protein, Total 6.9 g/dL (6.4-8.2); Sodium Level 138 mmol/L (136-145); Triglycerides 74 mg/dL; Very Low Density Lipoprotein 15 mg/dL (5-40)
== END | disposition home or self-care (01) ==
LOC: MFPLAB 09:39
PROVIDERS: PCP Family Medicine; Visit Provider Family Medicine
DX: I10 Essential (primary) hypertension (principal)
CPT/HCPCS: 36415; 80053; 80061; 85025

== ENCOUNTER → 2024-01-01 | Outpatient (CLI) | payer BC, SELFPAY ==
--- NOTE | 2024-01-01 14:39 | RAD_ITS ---
STUDY: X-RAY - RIGHT HAND REASON FOR EXAM: Male, 53 years old. Pain involving the third digit. TECHNIQUE: 3 view(s) of the hand. COMPARISON: None. FINDINGS: Normal radiocarpal articulation. Normal distal radioulnar joint. Normal visualized carpal bones. Normal carpal articulations Normal carpometacarpal articulation of the thumb. Normal second through fifth carpometacarpal joints. Normal metacarpi. Normal metacarpophalangeal joint of the thumb. Normal interphalangeal joint of the thumb. Normal proximal and distal phalanges of the thumb. Normal metacarpophalangeal joints of the second through fifth fingers. Normal proximal and distal interphalangeal joints of the second through fifth fingers. Normal phalanges of the second through fifth fingers. The soft tissue structures are unremarkable. RAD/Hand Min 3 Views IMPRESSION: Normal x-ray examination of the hand. Electronically Signed: Serg Betancur MD at 15:25 EDT ,
== END | disposition home or self-care (01) ==
PROVIDERS: PCP Family Medicine; Referring Provider Nurse Practitioner Family; Visit Provider Nurse Practitioner Family
DX: M79.641 Pain in right hand (principal)
CPT/HCPCS: 73130

== ENCOUNTER → 2024-02-07 | Outpatient (CLI) | payer BC, SELFPAY ==
[2024-02-07 10:33] LABS: Bacteria 0 SEEN /hpf (None Seen); Mucous, Urine 0 SEEN /hpf (<or=2+); Red Blood Cells-Urine 0 SEEN /hpf (0-5); Squamous Epithelial Cells - UA 0 SEEN /hpf (0-5); White Blood Cells 0 SEEN /hpf (0-5)
[2024-02-07 12:39] LABS: Absolute Lymphocyte Count 3.61 X10^3/uL (0.83-4.51); Absolute Neutrophil Count 5.6 X10^3/uL (2.0-7.7); Basophil# 0.09 X10^3/uL; Basophil% 0.8 % (0-1); Eosinophil# 0.43 X10^3/uL; Hematocrit 48.5 % (40-54); Hemoglobin 16.1 g/dL (13.0-16.5); Lymphocyte # 3.61 X10^3/ul (0.83-4.51); Lymphocyte % 33.8 % (19-41); Mean Corp Hgb Conc 33.2 g/dL (32-36); Mean Corpuscular Hgb 32.6 pg (27.0-32.0); Mean Corpuscular Volume 98.2 fL (80-94); Mean Platelet Vol. 9.8 fl (6.2-12.0); Monocyte# 0.92 X10^3/uL; Monocyte% 8.6 % (0-10); NRBC Flagged by Analyzer 0 % (0-5); Neutrophil % 52.6 % (47-70); Platelet Count 362 K/mm3 (150-450); RBC Distribution Width CV 12.8 % (11.6-14.6); RBC Distribution Width SD 46.2 fl (35.1-43.9); Red Blood Count 4.94 M/mm3 (4.6-6.2); White Blood Count 10.7 K/mm3 (4.4-11.0)
[2024-02-07 12:51] LABS: Color, Urine Yellow (Yellow); Glucose, Dipstick Normal (Normal); Ketone-Dipstick Negative (Negative); Leukocyte Esterase-Dipstick Negative /ul (Negative); Nitrite-Dipstick Negative (Negative); Occult Blood-Urine 10 /ul (Negative); Protein-Dipstick 15 mg/dl (Negative); Urine Bilirubin Dipstick Negative (Negative); Urine Clarity Clear (Clear); Urine Urobilinogen Normal (Normal); Urine pH 6.5 (5.0 - 8.0)
[2024-02-07 12:54] LABS: Vitamin B12 458 pg/mL (211-911)
[2024-02-07 13:04] LABS: ALB/GLOB Ratio 1.1 RATIO (0.9-2.4); AST(SGOT) 35 U/L (15-37); Alanine Aminotransfer ALT/SGPT 34 U/L (16-61); Albumin, Serum 3.7 g/dL (3.2-5.0); Alkaline Phosphatase 82 U/L (45-117); Anion Gap 3 (5-15); BUN 13 mg/dL (7-18); BUN/Creat Ratio 18.8 RATIO (10-20); Calcium,Total 9.2 mg/dL (8.5-10.1); Chloride 107 mmol/L (98-107); Cholesterol 195 mg/dL (200); Creatinine, Serum 0.69 mg/dL (0.70-1.30); EST Glomerular Filtration Rate 127 mL/min (>60); Est Glom Filt Rate - Afr Amer 154 mL/min (>60); Globulin 3.3 g/dL (2.2-4.2); Glucose 100 mg/dL (74-106); High Density Lipoprotein 65 mg/dL; Magnesium 2.2 mg/dL (1.6-2.6); Sodium Level 138 mmol/L (136-145); Thyroid Stim Hormone (TSH) 1.09 uIU/mL (0.358-3.74); Triglycerides 65 mg/dL; Very Low Density Lipoprotein 13 mg/dL (5-40)
[2024-02-12 22:06] LABS: Vitamin B1, Thiamine 156.5 nmol/L (66.5-200.0)
== END | disposition home or self-care (01) ==
LOC: MTLAB 10:26
PROVIDERS: PCP Family Medicine; Referring Provider Family Medicine; Visit Provider Family Medicine
DX: I10 Essential (primary) hypertension (principal)
CPT/HCPCS: 36415; 80053; 80061; 81001; 82607; 82746; 83735; 84425; 84443; 85025

== ENCOUNTER 2024-12-18 10:42 | Outpatient (CLI) | payer BC, SELFPAY ==
[2024-12-18 12:45] LABS: Absolute Neutrophil Count 5.1 X10^3/uL (2.0-7.7); Basophil# 0.08 X10^3/uL; Basophil% 0.7 % (0-1); Eosinophil# 0.42 X10^3/uL; Eosinophils% 3.5 % (0-5); Hematocrit 45.4 % (40-54); Hemoglobin 15.1 g/dL (13.0-16.5); Lymphocyte % 44.8 % (19-41); Mean Corp Hgb Conc 33.3 g/dL (32-36); Mean Corpuscular Hgb 32.3 pg (27.0-32.0); Mean Platelet Vol. 9.4 fl (6.2-12.0); Monocyte# 0.99 X10^3/uL; Monocyte% 8.2 % (0-10); NRBC Flagged by Analyzer 0 % (0-5); Neutrophil # 5.12 X10^3/uL (2.7-7.7); Neutrophil % 42.4 % (47-70); POSITIVE DIFFERENTIAL YES; POSITIVE MORPHOLOGY YES; Platelet Count 399 K/mm3 (150-450); RBC Distribution Width SD 46.1 fl (35.1-43.9); Red Blood Count 4.68 M/mm3 (4.6-6.2); White Blood Count 12.1 K/mm3 (4.4-11.0)
[2024-12-18 13:02] LABS: ALB/GLOB Ratio 1.5 RATIO (0.9-2.4); AST(SGOT) 42 U/L (<=37); Alanine Aminotransfer ALT/SGPT 31 U/L (<=46); Alkaline Phosphatase 87 U/L (40-129); Anion Gap 11 (5-15); BUN 14 mg/dL (4-19); BUN/Creat Ratio 22.3 RATIO (10-20); Calcium,Total 9.2 mg/dL (7.6-11.0); Carbon Dioxide 23.7 mmol/L (21.0-32.0); Chloride 106 mmol/L (98-108); Creatinine, Serum 0.64 mg/dL (0.70-1.20); EST Glomerular Filtration Rate 113 (>60); Globulin 2.8 g/dL (2.2-4.2); Glucose 100 mg/dL (70-99); Potassium 4.1 mmol/L (3.3-5.1); Protein, Total 6.8 g/dL (5.9-8.4); Sodium Level 141 mmol/L (133-145); Total Bilirubin 0.29 mg/dL (0.00-1.30)
[2024-12-18 13:09] LABS: Differential Indicated SCAN CRITERIA MET
[2024-12-18 13:16] LABS: Differential Comment SCANNED
[2024-12-18 13:49] LABS: FOLATES,SERUM (FOLIC ACID) 9.51 ng/mL (4.60-34.80)
[2024-12-18 14:16] LABS: Cholesterol 171 mg/dL (<=200); High Density Lipoprotein 46 mg/dL; Low Density Lipoprotein Calc. 99 mg/dL; Triglycerides 129 mg/dL; Very Low Density Lipoprotein 26 mg/dL (5-40); cholesterol:hdl ratio screen 3.73
[2024-12-21 11:08] LABS: Vitamin B1, Thiamine 137.1 nmol/L (66.5-200.0)
== END 2024-12-18 23:59 | disposition home or self-care (01) ==
LOC: MFPLAB 10:43
PROVIDERS: PCP Family Medicine; Referring Provider Family Medicine; Visit Provider Family Medicine
DX: I10 Essential (primary) hypertension (principal)
CPT/HCPCS: 36415; 80053; 80061; 82746; 84425; 85025

== ENCOUNTER → 2025-07-22 | Outpatient (CLI) | payer BC, SELFPAY ==
--- NOTE | 2025-07-22 | LES_PTH ---
PATIENT: ARINA TAVERAS LOC: [facility] U#:[id number] AGE/SX: 55/M ROOM: RE07/22/[address]: Dr. Enio Greer MD : 1970 BED: DIS: 07/22/2025 SPEC #: [id number] RECD: 07/22/25 15:12 STATUS: RADHA REAngie #: [id number] DEANDRA: 07/22/25 00:[address]: Enio Greer DEPT: SURGICAL PATHOLOGY RECD BY: Conrado Bustamante ENTERED: 07/22/25 15:39 SP TYPE: Lesion OTHR DR: Dr. Pardeep Oh MD Tissues: A - Skin of eyelid, NOS Procedures: Surgery Specimen Level IV HEADER OPERATION: Excision of lesion of left upper eyelid PRE-OP DIAGNOSIS: Left upper eyelid lesion TISSUE SUBMITTED: A- Left eyelid lesion MICROSCOPIC DIAGNOSIS A. Skin, left upper eyelid, "lesion", excision: * Seborrheic keratosis. MICROSCOPIC DESCRIPTION Slides are reviewed. GROSS DESCRIPTION A. Received in formalin labeled with the patient's name and date of . Designated as " left upper eyelid" is a 0.8 x 0.4 x 0.2 cm young-pink skin shave, devoid of orientation. The resection margin is inked black. Eccentrically on the epidermal surface is a 0.3 x 0.2 cm somewhat papillary lesion. The specimen is bisected (on the long axis) and entirely submitted in 1 cassette. HI 07/22/2025 CPT:61777
== END | disposition home or self-care (01) ==
LOC: LABSPEC 15:24
PROVIDERS: PCP Family Medicine; Referring Provider Ophthalmology; Visit Provider Ophthalmology
DX: L82.1 Other seborrheic keratosis (principal)
CPT/HCPCS: 88305